=== PATIENT | male | born 1980 | race Two or more races ===

== ENCOUNTER 2019-09-22 20:40 | Emergency (ER) | payer OTHER ==
[~2019-09-22] VITALS: Ht 172.7 cm; Wt 81.0 kg
[2019-09-22 21:15] VITALS: BP 135/84
== END 2019-09-22 21:16 | disposition home or self-care (01) ==
LOC: ER 20:40
DX: S46.811A Strain of other muscles, fascia and tendons at shoulder and upper arm level, right arm, initial encounter (principal); R01.1 Cardiac murmur, unspecified; X58.XXXA Exposure to other specified factors, initial encounter; Y93.89 Activity, other specified; Y92.89 Other specified places as the place of occurrence of the external cause; Y99.8 Other external cause status
CPT/HCPCS: 99283